=== PATIENT | female | born 1970 | race American Indian/Alaskan Native ===

== ENCOUNTER 2016-07-15 19:58 | Emergency (ER) | payer OTHER ==
[2016-07-15 20:08] VITALS: BP 151/100; PULSE 100; TEMP 98; BMI 30.7
--- NOTE | 2016-07-15 21:03 | PDOC ---
[id number] 46 year old female with a PMHx of diabetes who presents to the ED with chest pressure and left arm pain today. Patient reports associated SOB and orthopnea. She denies current chest pain, but reports slight left arm pain still. She denies chest pain on exertion, swelling, nausea, vomiting, diarrhea. Stress test and angiogram were recently done and normal. <Clarke Cheemaobhan Quita - Last Filed: 07/16/16 00:51> <CatherineSharonda - Last Filed: 07/18/16 15:59> - General Chief Complaint: Chest Pain Stated Complaint: CHEST PAIN Time Seen by Provider: 07/15/16 20:31 Past History <Clarke Cheemaobally Devlin - Last Filed: 07/16/16 00:51> - Past Medical History Asthma: Yes Diabetes: Yes - Surgical History Abdominal Surgery: Yes - Immunization History Immunization Up to Date: Yes - Psycho/Social/Smoking Cessation Hx Anxiety: No Suicidal Ideation: No Smoking History: Never smoked Have you smoked in the past 12 months: No Number of Cigarettes Smoked Daily: 0 Information on smoking cessation initiated: No Hx Alcohol Use: No Drug/Substance Use Hx: No <Sharonda Catherine - Last Filed: 07/18/16 15:59> - Past Medical History Allergies/Adverse Reactions: Allergies Allergy/AdvReac Type Severity Reaction Status Date / Time No Known Allergies Allergy Verified 07/15/16 20:05 Home Medications: Ambulatory Orders Metformin HCl 500 mg PO DAILY 03/16/16 Review of Systems - Review of Systems Comments:: 07/15/16 22:04 GENERAL/CONSTITUTIONAL: No fever or chills. No weakness. HEAD, EYES, EARS, NOSE AND THROAT: No change in vision. No ear pain or discharge. No sore throat. CARDIOVASCULAR: + chest pain, SOB, orthopnea. RESPIRATORY: No cough, wheezing, or hemoptysis. GASTROINTESTINAL: No nausea, vomiting, diarrhea or constipation. GENITOURINARY: No dysuria, frequency, or change in urination. MUSCULOSKELETAL: + left arm pain. No joint or muscle swelling or pain. No neck or back pain. SKIN: No rash NEUROLOGIC: No headache, vertigo, loss of consciousness, or change in strength/ sensation. ENDOCRINE: No increased thirst. No abnormal weight change. HEMATOLOGIC/LYMPHATIC: No anemia, easy bleeding, or history of blood clots. ALLERGIC/IMMUNOLOGIC: No hives or skin allergy. <Clarke Cheemaobally Devlin - Last Filed: 07/16/16 00:51> *Physical Exam - Vital Signs Last Vital Signs Temp Pulse Resp BP Pulse Ox 98.0 F 100 H 14 151/100 98 07/15/16 20:06 07/15/16 20:06 07/15/16 20:06 07/15/16 20:06 07/15/16 20:06 - Physical Exam Comments: 07/15/16 22:05 GENERAL: Awake, alert, and fully oriented, in no acute distress HEAD: No signs of trauma EYES: PERRLA, EOMI, sclera anicteric, conjunctiva clear ENT: Auricles normal inspection, hearing grossly normal, nares patent, oropharynx clear without exudates. Moist mucosa NECK: Normal ROM, supple, no lymphadenopathy, JVD, or masses LUNGS: Breath sounds equal, clear to auscultation bilaterally. No wheezes, and no crackles HEART: Regular rate and rhythm, normal S1 and S2, no murmurs, rubs or gallops ABDOMEN: Soft, nontender, normoactive bowel sounds. No guarding, no rebound. No masses EXTREMITIES: Normal range of motion, no edema. No clubbing or cyanosis. No cords, erythema, or tenderness NEUROLOGICAL: Cranial nerves II through XII grossly intact. Normal speech, normal gait SKIN: Warm, Dry, normal turgor, no rashes or lesions noted. <Clarke Cheemaobally Devlin - Last Filed: 07/16/16 00:51> - Vital Signs Last Vital Signs Temp Pulse Resp BP Pulse Ox 98.0 F 100 H 14 151/100 98 07/15/16 20:06 07/15/16 20:06 07/15/16 20:06 07/15/16 20:06 07/15/16 20:06 <Sharonda Catherine - Last Filed: 07/18/16 15:59> ED Treatment Course - LABORATORY CBC & Chemistry Diagram: 07/15/16 21:00 07/15/16 21:00 - ADDITIONAL ORDERS Additional order review: Laboratory Results 07/15/16 07/15/16 07/15/16 21:00 21:00 21:00 D-Dimer < 200 Sodium 139 Potassium 4.3 Chloride 104 Carbon Dioxide 26 Anion Gap 9 BUN 13 Creatinine 0.8 Creat Clearance w eGFR > 60 Random Glucose 210 H D Calcium 10.0 Total Bilirubin 0.2 D AST 21 ALT 29 Alkaline Phosphatase 145 H D Creatine Kinase 77 Troponin I < 0.02 Total Protein 8.2 Albumin 3.5 Urine HCG, Qual Negative 07/15/16 21:00 RBC 5.18 MCV 75.2 L MCHC 32.5 RDW 15.3 D MPV 8.1 Neutrophils % 67.4 Lymphocytes % 25.2 Monocytes % 5.2 Eosinophils % 1.5 Basophils % 0.7 - RADIOLOGY Radiograph Interpretation: 07/16/16 00:51 Abdominal US Reported by Dr. Leonard Evans Impression: Mildly fatty liver. No evidence of acute pathology. <Cyn Cheema - Last Filed: 07/16/16 00:51> - LABORATORY CBC & Chemistry Diagram: 07/15/16 21:00 07/15/16 21:00 <Sharonda Catherine - Last Filed: 07/18/16 15:59> Medical Decision Making - Medical Decision Making 07/15/16 23:55 Patient Name: Quynh Conner THIS IS A PRELIMINARYREPORT FROM IMAGING NURSE COORDINATOR EXAM: Ultrasound abdomen limited, right upper quadrant and limited abdominal duplex IMAGES: 45 INDICATION: Rule out cholelithiasis/cholecystitis DATE OF SERVICE: 2016-07-15 22:57:22.0 COMPARISON: none FINDINGS: Right upper quadrant ultrasound: The liver is mildly fatty and measures 17.1 cm in length, without mass or biliary duct dilation. The gallbladder is normal. The CBD is not dilated and measures3 millimeters in diameter. Right kidney measures 11.8centimeters in length and is unremarkable. The visualized aorta and IVC are normal. Pancreas is partially obscured, but appears normal. Abdominal duplex: Main portal vein demonstrates normal hepatopedal flow IMPRESSION: Mildly fatty liver. No evidence of acute pathology. Pt is refusing second cardiac enzyme. SHe states that the pain began after eating a deep fried samosa and likely is gastritis. Pt states that her pain was fleeting and now gone. She wants to follow outpatient with her PMD. She will be discharged; however, she understands that the single cardiac enzyme is nor enough to clear her chest pain as not being cardiac. <Sharonda Catherine - Last Filed: 07/18/16 15:59> *DC/Admit/Observation/Transfer - Attestations Scribe Attestion: 07/15/16 22:05 Documentation prepared by Cyn Cheema, acting as medical scientist for Sharonda Catherine MD. <Cyn Cheema - Last Filed: 07/16/16 00:51> <Sharonda Catherine - Last Filed: 07/18/16 15:59> Diagnosis at time of Disposition: Atypical chest pain, Fatty liver - Discharge Dispostion Disposition: HOME - Referrals Referrals: Lg Mahmood MD [Primary Care Provider] - - Patient Instructions Printed Discharge Instructions: DI for Atypical Chest Pain, Nonalcoholic Fatty Liver Disease
[2016-07-15 21:12] LABS: BASOPHIL 0.7 % (0-2.0); EOSINOPHIL 1.5 % (0-4.5); MCH 24.4 pg (25.7-33.7); MCHC 32.5 g/dl (32.0-36.0); MEAN CELL VOLUME 75.2 fl (80-96); MEAN PLT VOLUME 8.1 fl (7.5-11.1); NEUTROPHILS 67.4 % (42.8-82.8); PLATELET COUNT 316 K/MM3 (134-434); RDW 15.3 % (11.6-15.6); WHITE BLOOD COUNT 13.2 K/mm3 (4.0-10.0)
[2016-07-15 21:50] LABS: ALBUMIN 3.5 g/dl (3.4-5.0); ANION GAP 9 (8-16); CO2 26 mmol/L (21-32); GLUCOSE,RANDOM 210 mg/dL (74-106); SGOT/AST 21 U/L (15-37); SGPT/ALT 29 U/L (12-78)
[2016-07-15 21:55] LABS: ALK PHOS 145 U/L (45-117); BILIRUBIN,TOTAL 0.2 mg/dL (0.2-1.0); CREATININE 0.8 mg/dL (0.55-1.02); TOT PROT 8.2 g/dl (6.4-8.2); TROPONIN I < 0.02 ng/ml (0.00-0.05)
--- NOTE | 2016-07-17 16:14 | EKG ---
Test Reason : Blood Pressure : / mmHG Vent. Rate : 095 BPM Atrial Rate : 095 BPM P-R Int : 148 ms QRS Dur : 078 ms QT Int : 358 ms P-R-T Axes : 039 -12 022 degrees QTc Int : 449 ms NORMAL SINUS RHYTHM POSSIBLE LEFT ATRIAL ENLARGEMENT BORDERLINE ECG NO PREVIOUS ECGS AVAILABLE Confirmed by STEPHANIE ALLISON, MIKHAIL ([id number]) on 07/17/2016 4:14:13 PM Referred By: Confirmed By:MIKHAIL BROWN MD
== END 2016-07-16 01:33 | disposition home or self-care (01) ==
LOC: JER 19:58
DX: R07.89 Other chest pain (principal); E11.9 Type 2 diabetes mellitus without complications; Z79.84 Long term (current) use of oral hypoglycemic drugs; K76.0 Fatty (change of) liver, not elsewhere classified; J45.909 Unspecified asthma, uncomplicated
CPT/HCPCS: 36415; 71020-TC; 76705-TC; 80053; 82550; 84484; 84703; 85025; 85379; 87804; 93005; 93010; 99283-25

== ENCOUNTER 2016-09-02 07:28 | Emergency (ER) | payer OTHER ==
[2016-09-02 07:40] VITALS: BP 139/85; PULSE 88; TEMP 98.5; BMI 30.6
--- NOTE | 2016-09-02 08:09 | PDOC ---
History of Present Illness - General History Source: Patient, Old Records Exam Limitations: No Limitations - History of Present Illness Initial Comments: 09/02/16 08:17 The patient is a 46 year old female presenting with her , with a significant past medical history of diabetes and asthma, who presents to the emergency department with sore throat, body aches and fever since yesterday. She reports that her sore throat is severe, making it hard for her to swallow. She notes that she took Ibuprofen called pain aid around 3am this morning with minimal relief of her symptoms. She states that he fever is subjective. She reports that she has young children at home but has not had any sick contacts. The patient denies chest pain, shortness of breath, headache and dizziness. Denies chills, nausea, vomit, diarrhea and constipation. Denies dysuria, frequency, urgency and hematuria. Allergies: None Past surgical history: Abdominal surgery Social history: No alcohol, tobacco or drug use reported <Donte Haas - Last Filed: 09/02/16 08:17> <Cameron Antoine - Last Filed: 09/02/16 09:40> - General Chief Complaint: Sore Throat Stated Complaint: SORE THROAT Time Seen by Provider: 09/02/16 07:42 Past History <Donte Haas - Last Filed: 09/02/16 08:17> - Past Medical History Asthma: Yes Diabetes: Yes - Surgical History Abdominal Surgery: Yes - Immunization History Immunization Up to Date: Yes - Psycho/Social/Smoking Cessation Hx Anxiety: No Suicidal Ideation: No Smoking History: Never smoked Have you smoked in the past 12 months: No Number of Cigarettes Smoked Daily: 0 Information on smoking cessation initiated: No Hx Alcohol Use: No Drug/Substance Use Hx: No Substance Use Type: None <Cameron Antoine - Last Filed: 09/02/16 09:40> - Past Medical History Allergies/Adverse Reactions: Allergies Allergy/AdvReac Type Severity Reaction Status Date / Time No Known Allergies Allergy Verified 09/02/16 07:34 Home Medications: Ambulatory Orders Metformin HCl 500 mg PO DAILY 03/16/16 Amoxicillin - [Amoxicillin 500mg Capsule -] 500 mg PO BID #20 capsule 09/02/16 Review of Systems - Review of Systems Able to Perform ROS?: Yes Comments:: 09/02/16 08:20 CONSTITUTIONAL: +Fever and bodyaches. No chills, no fatigue EYES: No visual changes ENT: +Sore throat. No ear pain CARDIOVASCULAR: No chest pain, no palpitations RESPIRATORY: No cough, no SOB GI: No abdominal pain, no nausea, no vomiting, no constipation, no diarrhea GENITOURINARY: No dysuria, no frequency, no hematuria MUSKULOSKELETAL: No backpain, no joint pain, no myalgias SKIN: No rash NEURO: No headache <Donte Haas - Last Filed: 09/02/16 08:17> *Physical Exam - Vital Signs Last Vital Signs Temp Pulse Resp BP Pulse Ox 98.5 F 88 18 139/85 100 09/02/16 07:34 09/02/16 07:34 09/02/16 07:34 09/02/16 07:34 09/02/16 07:34 - Physical Exam Comments: 09/02/16 08:20 CONSTITUTIONAL: Well-appearing; well-nourished; in no apparent distress HEAD: Normocephalic; atraumatic EYES: PERRL; EOM intact ENMT: External appears normal; significant erythema of the posterior oropharynx with enlarged tonsils and large amount of exudates, uvula is midline and is nonedematous. NECK: Supple; Bilateral anterior cervical lymphadenopathy which is mildly tender CARD: Normal S1, S2; no murmurs, rubs, or gallops RESP: Normal chest excursion with respiration; breath sounds clear and equal bilaterally; no wheezes, rhonchi, or rales ABD: Soft, non-distended; non-tender; no palpable organomegaly, no palpable hernias EXT: Normal ROM in all four extremities; non-tender to palpation; distal pulses intact SKIN: Warm, dry, no rash NEURO: No focal neurological deficiencies. <Donte Haas - Last Filed: 09/02/16 08:17> - Vital Signs Last Vital Signs Temp Pulse Resp BP Pulse Ox 98.5 F 88 18 139/85 100 09/02/16 07:34 09/02/16 07:34 09/02/16 07:34 09/02/16 07:34 09/02/16 07:34 <Cameron Antoine - Last Filed: 09/02/16 09:40> Medical Decision Making - Medical Decision Making 09/02/16 09:33 Patient is well-appearing 46-year-old female with history of non-insulin- dependent diabetes who presents with signs and symptoms of the acute pharyngitis. Patient's influenza negative. Patient has received Toradol with improvement in level is of her symptoms. Patient tolerates by mouth. There is no evidence of peritonsillar abscess at this time. Will discharge with amoxicillin with PMD follow-up. <Cameron Antoine - Last Filed: 09/02/16 09:40> *DC/Admit/Observation/Transfer - Attestations Scribe Attestion: 09/02/16 08:22 Documentation prepared by Donte Haas, acting as medical charge entry specialist for Cameron Antoine MD <Donte Haas - Last Filed: 09/02/16 08:17> - Attestations Physician Attestion: 09/02/16 09:32 The documentation was prepared by the scribe under my direct supervision. I have reviewed the documentation which correctly represents the findings, medical decision-making and critical action taken by me. <Cameron Antoine - Last Filed: 09/02/16 09:40> Diagnosis at time of Disposition: Acute pharyngitis Qualifiers: Pharyngitis/tonsillitis etiology: unspecified etiology Qualified Code(s): J02.9 - Acute pharyngitis, unspecified - Discharge Dispostion Disposition: HOME Condition at time of disposition: Stable - Referrals Referrals: Lg Mahmood MD [Primary Care Provider] - - Patient Instructions Printed Discharge Instructions: DI for Pharyngitis/Tonsillopharyngitis -- Adult
[2016-09-02] MEDS ORDERED: KETOROLAC TROMETHAMINE 60 MG/2 ML VIAL IM ONE (08:15)
[2016-09-02] MEDS ORDERED: KETOROLAC TROMETHAMINE 60 MG/2 ML VIAL ONE (08:20)
== END 2016-09-02 09:58 | disposition home or self-care (01) ==
LOC: JER 07:28
PROC: 3E0233Z Introduction of Anti-inflammatory into Muscle, Percutaneous Approach (ICD-10-PCS; principal; 2016-09-02)
DX: J02.9 Acute pharyngitis, unspecified (principal); E11.9 Type 2 diabetes mellitus without complications; Z79.84 Long term (current) use of oral hypoglycemic drugs; J45.909 Unspecified asthma, uncomplicated
CPT/HCPCS: 87804; 96372; 99282-25

== ENCOUNTER 2017-07-31 15:24 | Observation (INO) | payer OTHER ==
[2017-07-31 15:45] VITALS: BMI 30.9
--- NOTE | 2017-07-31 15:55 | PDOC ---
History of Present Illness - General Chief Complaint: Chest Pain Stated Complaint: CHEST PAIN Time Seen by Provider: 07/31/17 15:26 - History of Present Illness Initial Comments: 07/31/17 15:56 The patient is a 47 year old female with a history of DM who presents for evaluation of chest pain with SOB. The patient reports a 1 day history of substernal chest pressure with associated SOB prompting the patient to present to the ED for evaluation. She states that her pain radiated into her neck, but is now isolated to her chest. She notes that she had a stress test performed 1 year ago that was normal. She otherwise denies fevers, chills, cough, nausea, vomiting, abdominal pain, or changes with urination or bowel movements. Past History - Past Medical History Allergies/Adverse Reactions: Allergies Allergy/AdvReac Type Severity Reaction Status Date / Time No Known Allergies Allergy Verified 07/31/17 15:39 Home Medications: Ambulatory Orders Metformin HCl 500 mg PO DAILY 03/16/16 Asthma: Yes COPD: No Diabetes: Yes - Surgical History Abdominal Surgery: Yes - Immunization History Immunization Up to Date: Yes - Suicide/Smoking/Psychosocial Hx Smoking History: Never smoked Have you smoked in the past 12 months: No Number of Cigarettes Smoked Daily: 0 Hx Alcohol Use: No Drug/Substance Use Hx: No Substance Use Type: None Review of Systems - Review of Systems Comments:: 07/31/17 15:59 Constitutional: No fevers, chills, fatigue, malaise HEENT: No Rhinorrhea, nasal congestion, visual changes Cardiovascular: Chest pain. No syncope, palpitations, lightheadedness Respiratory: SOB No Cough, Hemoptysis, Gastrointestinal: No Abdominal pain, Nausea, Vomiting, Constipation, Diarrhea, Melena Genitourinary: No Dysuria, Frequency, Urgency, Hesitancy, Hematuria, Flank pain Musculoskeletal: No Myalgia, arthralgia Skin: No rashes, itching, bruising, pallor Neurologic: Dizziness. No Headache, Numbness, Weakness, or Tingling Psychiatric: No Hallucinations. No SI or HI *Physical Exam - Vital Signs Last Vital Signs Temp Pulse Resp BP Pulse Ox 98 F 93 H 18 136/92 99 07/31/17 15:39 07/31/17 15:39 07/31/17 15:39 07/31/17 15:39 07/31/17 15:39 - Physical Exam Comments: 07/31/17 16:01 General Appearance: Nourished. No Apparent Distress HEENT: No Pharyngeal Erythema, Tonsillar Exudate, Tonsillar Erythema Neck: No Cervical Lymphadenopathy Respiratory/Chest: Lungs Clear, Normal Breath Sounds. No Crackles, Rales, Rhonchi, Wheezing Cardiovascular: Regular Rhythm, Regular Rate. No Murmur, Gallops, Rubs Gastrointestinal/Abdominal: Normal Bowel Sounds, Soft. No Guarding, Rebound, Tenderness Musculoskeletal: No CVA Tenderness Extremity: Normal Capillary Refill Integumentary: Normal Color, Dry, Warm Neurologic: Fully Oriented, Alert, Normal Mood/Affect, Normal Response, Heart Score/ECG Review - History History: Moderately suspicious - Electrocardiogram EKG: Normal - Age Age: 45-65 - Risk Factors Risk Factors Heart Score: Yes Hx Hypertension, Yes Hx Diabetes, Yes Positive family hx of cardiac disease Based on the list above the patient has:: >/=3 risk factors or Hx atherosclerotic disease - Troponin Troponin: </= normal limit - Score Heart Score - Total: 4 #1 ECG reviewed & interpreted by me at: 16:02 General ECG Interpretation: Sinus Rhythm, Normal Rate, Normal Intervals, No acute ischemic changes ED Treatment Course - LABORATORY CBC & Chemistry Diagram: 07/31/17 16:00 07/31/17 16:00 - RADIOLOGY Radiology Studies Ordered: Category Date Time Status CHEST X-RAY PORTABLE* [RAD] Stat Radiology 07/31/17 15:51 Ordered Medical Decision Making - Medical Decision Making 07/31/17 16:02 The patient is a 47 year old female with a history of DM who presents for evaluation of chest pain with SOB. Differential includes but is not limited to : ACS, Gastritis, Musculoskeletal, infectious, metabolic derangement. Given the patient's history, we will obtain a cbc, cmp, troponin, ekg, and chest plain film to evaluate for possible etiologies especially ACS. We will continue to monitor and reassess. 07/31/17 17:53 CBC, cmp, troponin, EKG are unremarkable. However, given her co-morbidities and history, we believe she requires observation admission for further monitoring and cardiology eval. We discussed the case with Dr. Barnett's team who accepted the patient for admission. We discussed the results and the plan with the patient who voiced understanding and is agreeable with the plan. *DC/Admit/Observation/Transfer Diagnosis at time of Disposition: Chest pain Qualifiers: Chest pain type: unspecified Qualified Code(s): R07.9 - Chest pain, unspecified - Discharge Dispostion Condition at time of disposition: Stable Admit: Yes - Referrals - Patient Instructions - Post Discharge Activity
[2017-07-31] MEDS ORDERED: SODIUM CHLORIDE 1,000 ML IV STA (16:10)
[2017-07-31] MEDS ORDERED: MAG HYDROX/AL HYDROX/SIMETH 30 ML UNIT-DOSE CUP PO ONE (16:11)
[2017-07-31 16:14] LABS: BASO % 0.5 % (0-2.0); EOS % 0.5 % (0-4.5); HEMATOCRIT 36.5 % (32.4-45.2); HEMOGLOBIN 11.6 GM/dL (10.7-15.3); MCHC 31.8 g/dl (32.0-36.0); MEAN CELL VOLUME 75.5 fl (80-96); MONO % 5.7 % (3.8-10.2); NEUT % 72.3 % (42.8-82.8); PLATELET COUNT 282 K/MM3 (134-434); RBC 4.84 M/mm3 (3.60-5.2); RDW 15.8 % (11.6-15.6); WHITE BLOOD COUNT 11.2 K/mm3 (4.0-10.0)
[2017-07-31] MEDS ORDERED: FAMOTIDINE 20 MG/50 ML IVPB 20 MG/50 ML MG IVPB ONE ×2 (16:15→16:43)
[2017-07-31] MEDS ORDERED: MAG HYDROX/AL HYDROX/SIMETH 30 ML UNIT-DOSE CUP ONE (16:43)
[2017-07-31 16:59] LABS: ALBUMIN 3.1 g/dl (3.4-5.0); ANION GAP 9 (8-16); BLOOD UREA NITROGEN 12 mg/dL (7-18); CALCIUM 8.6 mg/dL (8.5-10.1); CHLORIDE 107 mmol/L (98-107); CO2 21 mmol/L (21-32); GLUCOSE,RANDOM 120 mg/dL (74-106); SGPT/ALT 29 U/L (12-78); SODIUM 137 mmol/L (136-145)
[2017-07-31 17:04] LABS: ALK PHOS 115 U/L (45-117); BILIRUBIN,TOTAL 0.3 mg/dL (0.2-1.0); CREATININE 0.6 mg/dL (0.55-1.02); TOT PROT 7.1 g/dl (6.4-8.2)
[2017-07-31 17:05] LABS: POTASSIUM 4.5 mmol/L (3.5-5.1); SGOT/AST 34 U/L (15-37)
--- NOTE | 2017-07-31 18:06 | PDOC ---
Attending Attestation - Resident Resident Name: Jeff La - ED Attending Attestation I have performed the following: I have examined & evaluated the patient, The case was reviewed & discussed with the resident, I agree w/resident's findings & plan, Exceptions are as noted - HPI HPI: 07/31/17 18:06 47 yo female p/w chest pain that radiates to her neck - Physicial Exam PE: 07/31/17 18:16 wnwd 47 yo female in no acute disctress but states she had chest pain today head ncat eyes calvin neck jvd,no bruits lungs cta b/l cvs [id number] abdominal exam nontender extremities no pitting edema neuro axox3,ambulatory skin warm and dry psych appropriate - Medical Decision Making 07/31/17 18:18 pt has NIDDM and family history of heart disease and concerning symptoms of angina-will admit to telemetry OBS IMP angina/diabetes
--- NOTE | 2017-08-01 10:33 | EKG ---
Test Reason : Blood Pressure : / mmHG Vent. Rate : 092 BPM Atrial Rate : 092 BPM P-R Int : 160 ms QRS Dur : 086 ms QT Int : 372 ms P-R-T Axes : 024 -11 010 degrees QTc Int : 460 ms NORMAL SINUS RHYTHM NORMAL ECG WHEN COMPARED WITH ECG OF 15-JUL-2016 21:09, NO SIGNIFICANT CHANGE WAS FOUND Confirmed by OMI BLEDSOE MD ([id number]) on 08/01/2017 10:33:33 AM Referred By: Confirmed By:OMI BLEDSOE MD
[2017-08-01] MEDS: INSULIN SLIDING SCALE (NOVOLOG) 1 VIAL SQ SCH ×3 (11:10→21:17)
--- NOTE | 2017-08-01 11:29 | CON.CARD ---
Cardiology Consult (text) - Consultation Consultation Note: cc: cp hpi: 47 f hx dm here with cp. Last night pt at rest and noticed sharp left sided cp for a second, resolved on own. No associated sxs. No sob, palps, dizzy, loc, pnd, orthopnea, le edema. No further or prior cp. Walks up 5 flights stairs at her apt regularly w/o anginal sxs. Feeling well now. No hx hrt dz. pmh: per hpi psh: nc social: no tob fam: no premature cad, scd ros: per hpi; no nvd, fever, cough, nasal congestion, gib, hematuria, dysuria, momin, vision changes meds: Home Medications Medication Instructions Recorded Metformin HCl 500 mg PO DAILY 03/16/16 pe: Vital Signs Period Temp Pulse Resp BP Sys/[place] Pulse Ox Last 24 Hr 97.6 F-98.6 F 77-93 18-18 112-140/75-92 99-100 nad no jvd rrr s1s2 no mrg cta bl nl eff no le e/c/c abd nt nd pos bs no jaundice diaphoresis pos dp pt no carotid bruits aaox3 Laboratory Last Values WBC 11.2 K/mm3 (4.0-10.0) H 07/31/17 16:00 RBC 4.84 M/mm3 (3.60-5.2) 07/31/17 16:00 Hgb 11.6 GM/dL (10.7-15.3) 07/31/17 16:00 Hct 36.5 % (32.4-45.2) 07/31/17 16:00 MCV 75.5 fl (80-96) L 07/31/17 16:00 MCH 24.0 pg (25.7-33.7) L 07/31/17 16:00 MCHC 31.8 g/dl (32.0-36.0) L 07/31/17 16:00 RDW 15.8 % (11.6-15.6) H 07/31/17 16:00 Plt Count 282 K/MM3 (134-434) 07/31/17 16:00 MPV 8.0 fl (7.5-11.1) 07/31/17 16:00 Neutrophils % 72.3 % (42.8-82.8) 07/31/17 16:00 Lymphocytes % 21.0 % (8-40) 07/31/17 16:00 Monocytes % 5.7 % (3.8-10.2) 07/31/17 16:00 Eosinophils % 0.5 % (0-4.5) 07/31/17 16:00 Basophils % 0.5 % (0-2.0) 07/31/17 16:00 Sodium 137 mmol/L (136-145) 07/31/17 16:00 Potassium 4.5 mmol/L (3.5-5.1) 07/31/17 16:00 Chloride 107 mmol/L (98-107) 07/31/17 16:00 Carbon Dioxide 21 mmol/L (21-32) 07/31/17 16:00 Anion Gap 9 (8-16) 07/31/17 16:00 BUN 12 mg/dL (7-18) 07/31/17 16:00 Creatinine 0.6 mg/dL (0.55-1.02) 07/31/17 16:00 Creat Clearance w eGFR > 60 (>60) 07/31/17 16:00 Random Glucose 120 mg/dL (74-106) H 07/31/17 16:00 Calcium 8.6 mg/dL (8.5-10.1) 07/31/17 16:00 Total Bilirubin 0.3 mg/dL (0.2-1.0) D 07/31/17 16:00 AST 34 U/L (15-37) 07/31/17 16:00 ALT 29 U/L (12-78) 07/31/17 16:00 Alkaline Phosphatase 115 U/L (45-117) 07/31/17 16:00 Creatine Kinase 49 IU/L (26-192) 08/01/17 10:05 Troponin I < 0.02 ng/ml (0.00-0.05) 08/01/17 10:05 Total Protein 7.1 g/dl (6.4-8.2) 07/31/17 16:00 Albumin 3.1 g/dl (3.4-5.0) L 07/31/17 16:00 Serum , Qual Negative 07/31/17 15:51 ecg: sr, nl intervals, no ischemic changes cxr: clear lungs a/p: 47 f hx dm here with cp. cp: -atypical, resolved -ce's neg, ecg unremarkable -no signs acs -given hx dm will eval further with echo and ett, if both benign then ok for dc from cardiac pov
--- NOTE | 2017-08-01 14:23 | TRE ---
Protocol Name : JASE Max Work Load (METS*10) : 85 Time In Exercise Phase : 00:06:59 Max. Systolic BP : 152 mmHg Max Diastolic BP : 78 mmHg Max Heart Rate : 148 BPM Max Predicted Heart Rate : 174 BPM Attending Physician : DR. BLEDSOE Reason For Termination : Target Heart Rate Achieved Reason for Test : CP Stress Protocol : JASE Rest HR : 97 BPM PeakEx METs : 8.5 METS Recovery ECG Response (OLD) : Diagnosis : baseline ekg nsr WNL at peak stress [address] depressions V4-V6 c/w ischemia Abnormal treadmill stress test Confirmed by RAKAN ALLISON, OMI ([id number]) on 08/01/2017 2:22:43 PM
[2017-08-01] MEDS ORDERED: INSULIN (NOVOLOG) ASPART 100 UNITS/ML 10ML VIAL ONE ×2 (17:18→17:26)
--- NOTE | 2017-08-01 18:48 | HP ---
Admitting History and Physical - Admission Chief Complaint: chest pain History of Present Illness: The patient is a 47 year old female with a history of DM who presents for evaluation of chest pain with SOB. The patient reports a 1 day history of substernal chest pressure with associated SOB prompting the patient to present to the ED for evaluation. She states that her pain radiated into her neck, but is now isolated to her chest. She notes that she had a stress test performed 1 year ago that was normal. She otherwise denies fevers, chills, cough, nausea, vomiting, abdominal pain, or changes with urination or bowel movements. History Source: Patient Limitations to Obtaining History: No Limitations - Smoking History Smoking history: Never smoked Have you smoked in the past 12 months: No Aproximately how many cigarettes per day: 0 - Alcohol/Substance Use Hx Alcohol Use: No - Social History Usual Living Arrangement: Yes: With Spouse ADL: Independent History of Recent Travel: No Home Medications - Allergies Allergies/Adverse Reactions: Allergies Allergy/AdvReac Type Severity Reaction Status Date / Time No Known Allergies Allergy Verified 07/31/17 15:39 - Home Medications Home Medications: Ambulatory Orders Metformin HCl 500 mg PO DAILY 03/16/16 Review of Systems - Review of Systems Constitutional: reports: No Symptoms Eyes: reports: No Symptoms HENT: reports: No Symptoms Neck: reports: No Symptoms Cardiovascular: reports: Chest Pain, Palpitations. denies: Edema, Shortness of Breath Respiratory: reports: SOB. denies: SOB on Exertion, Wheezing Gastrointestinal: reports: No Symptoms Genitourinary: reports: No Symptoms Breasts: reports: No Symptoms Reported Musculoskeletal: reports: No Symptoms Integumentary: reports: No Symptoms Neurological: reports: No Symptoms Endocrine: reports: No Symptoms Hematology/Lymphatic: reports: No Symptoms Psychiatric: reports: No Symptoms Physical Examination Vital Signs: Vital Signs Temperature 98.4 F 08/01/17 15:58 Pulse Rate 84 08/01/17 15:58 Respiratory Rate 18 08/01/17 15:58 Blood Pressure 139/76 08/01/17 15:58 O2 Sat by Pulse Oximetry (%) 98 08/01/17 15:58 Constitutional: Yes: Well Nourished, No Distress Eyes: Yes: Conjunctiva Clear, EOM Intact HENT: Yes: Atraumatic, Normocephalic Neck: Yes: Supple, Trachea Midline Cardiovascular: Yes: Regular Rate and Rhythm Respiratory: Yes: CTA Bilaterally Gastrointestinal: Yes: Normal Bowel Sounds, Soft Renal/: Yes: WNL Breast(s): Yes: WNL Musculoskeletal: Yes: WNL Extremities: Yes: WNL Edema: No Peripheral Pulses WNL: Yes Integumentary: Yes: WNL Wound/Incision: Yes: Clean/Dry, Well Approximated Neurological: Yes: WNL, Alert, Oriented ...Motor Strength: WNL Psychiatric: Yes: Alert, Oriented Labs: CBC, BMP 07/31/17 16:00 07/31/17 16:00 Problem List - Problems (1) Chest pain Assessment/Plan: ekg / TNI cardiology consult Dr Jacinto stress test per Cardiology Code(s): R07.9 - CHEST PAIN, UNSPECIFIED Qualifiers: Chest pain type: unspecified Qualified Code(s): R07.9 - Chest pain, unspecified (2) Diabetes mellitus Assessment/Plan: diabetic diet sliding scale diabetic education Code(s): E11.9 - TYPE 2 DIABETES MELLITUS WITHOUT COMPLICATIONS
[2017-08-02] MEDS: INSULIN SLIDING SCALE (NOVOLOG) 1 VIAL SQ SCH ×2 (06:44→12:18)
[2017-08-02 07:11] LABS: BASO % 0.4 % (0-2.0); EOS % 1.3 % (0-4.5); HEMATOCRIT 37.1 % (32.4-45.2); HEMOGLOBIN 12.1 GM/dL (10.7-15.3); LYMPH % 37.4 % (8-40); MCH 24.6 pg (25.7-33.7); MCHC 32.5 g/dl (32.0-36.0); MEAN CELL VOLUME 75.8 fl (80-96); NEUT % 54.9 % (42.8-82.8); PLATELET COUNT 287 K/MM3 (134-434); RDW 15.8 % (11.6-15.6); WHITE BLOOD COUNT 10.9 K/mm3 (4.0-10.0)
[2017-08-02 07:41] LABS: ANION GAP 8 (8-16); BLOOD UREA NITROGEN 13 mg/dL (7-18); CALCIUM 8.8 mg/dL (8.5-10.1); CHLORIDE 104 mmol/L (98-107); CHOLESTEROL 160 mg/dL (50-200); CO2 25 mmol/L (21-32); CREATININE 0.6 mg/dL (0.55-1.02); GLUCOSE,RANDOM 119 mg/dL (74-106); HDL CHOLESTEROL 35 mg/dL (40-60); LDL CHOLESTEROL (ONLY SJRH) 108 mg/dL (5-100); POTASSIUM 4.3 mmol/L (3.5-5.1); SODIUM 137 mmol/L (136-145); TRIGLYCERIDES 139 mg/dL (35-160)
[2017-08-02] MEDS ORDERED: PANTOPRAZOLE 40 MG TABLET (FP) PO SCH (10:00)
--- NOTE | 2017-08-02 10:40 | PN ---
Progress Note (short form) - Note Progress Note: s: no cp sob palps dizzy o: Vital Signs Period Temp Pulse Resp BP Sys/[place] Pulse Ox Last 24 Hr 97.6 F-98.7 F 76-87 18-20 118-139/66-87 96-98 nad no jvd rrr s1s2 no mrg cta bl nl eff no le e/c/c abd nt nd pos bs no jaundice diaphoresis aaox3 Current Medications Generic Name Dose Route Start Last Admin Trade Name Kendrick PRN Reason Stop Dose Admin Insulin Aspart 1 vial 08/01/17 11:00 08/02/17 06:44 Novolog Vial Sliding Scale - SQ Not Given ACHS EMERITA Protocol Pantoprazole Sodium 40 mg 08/02/17 10:00 08/02/17 10:01 Protonix - PO 40 mg DAILY EMERITA Administration CBC, BMP 08/02/17 05:35 08/02/17 05:35 ecg: sr, nl intervals, no ischemic changes cxr: clear lungs tele: sr echo 07/2017: nl lv, rv tds, mild mr ett 07/2017: +st depressions mibi 07/2017: mod size, mild intensity inf ischemia, lvef 87%-->i reviewed this study and it was normal, no evidence of ischemia, normal myocardial perfusion a/p: 47 f hx dm here with cp. cp: -atypical, resolved -ce's neg, ecg unremarkable -echo benign -ett was abnl so sent for nuclear stress test. Nuclear stress test was reported as abnl with mild inf ischemia. I reviewed the study myself and it is normal, there is no ischemia/scar and there is normal myocardial perfusion. pt ok for dc from cardiac pov
--- NOTE | 2017-08-02 11:23 | PN ---
Progress Note (short form) - Note Progress Note: Pt found alert and oriented x 3, sitting in bed. Spouse present. No c/o sob, chest pain or palpitations. Pt cleared by Cardiology. Vital Signs Period Temp Pulse Resp BP Sys/C[place]ona Pulse Ox Last 24 Hr 97.6 F-98.7 F 76-87 18-20 118-139/66-87 96-98 NAD HEENT- Normocephalic Neck- supple Lungs- CTAB Heart- s1/s2 Abd- Soft, NT, Pos BS x 4 Ext- Neg LE edema CBC, BMP 08/02/17 05:35 08/02/17 05:35 Active Medications Insulin Aspart (Novolog Vial Sliding Scale -) 1 vial SQ ACHS EMERITA PRN Reason: Protocol Last Admin: 08/02/17 06:44 Dose: Not Given Pantoprazole Sodium (Protonix -) 40 mg PO DAILY EMERITA Last Admin: 08/02/17 10:01 Dose: 40 mg Problem List - Problems (1) Chest pain Assessment/Plan: ekg / TNI NEG cardiology consult appreciated Cleared by Cardiology Code(s): R07.9 - CHEST PAIN, UNSPECIFIED Qualifiers: Chest pain type: unspecified Qualified Code(s): R07.9 - Chest pain, unspecified (2) Diabetes mellitus Assessment/Plan: diabetic diet sliding scale diabetic education Code(s): E11.9 - TYPE 2 DIABETES MELLITUS WITHOUT COMPLICATIONS Plan: [place] home today.
--- NOTE | 2017-08-02 11:34 | EKG ---
Test Reason : Blood Pressure : / mmHG Vent. Rate : 079 BPM Atrial Rate : 079 BPM P-R Int : 156 ms QRS Dur : 082 ms QT Int : 392 ms P-R-T Axes : 006 -05 001 degrees QTc Int : 449 ms NORMAL SINUS RHYTHM NORMAL ECG WHEN COMPARED WITH ECG OF 31-JUL-2017 15:44, NO SIGNIFICANT CHANGE WAS FOUND Confirmed by MICHELE HALE MD ([id number]) on 08/02/2017 11:33:47 AM Referred By: Confirmed By:MICHELE HALE MD
--- NOTE | 2017-08-02 11:49 | DS ---
Physical Examination Vital Signs: Vital Signs Temperature 98.5 F 08/02/17 10:00 Pulse Rate 80 08/02/17 10:00 Respiratory Rate 20 08/02/17 10:00 Blood Pressure 123/67 08/02/17 10:00 O2 Sat by Pulse Oximetry (%) 98 08/02/17 10:00 Labs: CBC, BMP 08/02/17 05:35 08/02/17 05:35 Discharge Summary Reason For Visit: CHEST PAIN Current Active Problems Chest pain (Acute) Diabetes mellitus (Acute) Condition: Stable - Instructions Referrals: Rneny Perez MD [Staff Physician] - Lg Mahmood MD [Primary Care Provider] - Disposition: HOME - Home Medications Comprehensive Discharge Medication List: Ambulatory Orders Metformin HCl 500 mg PO DAILY 03/16/16
[2017-08-02 13:53] VITALS: BP 122/83; PULSE 87; TEMP 99.7
== END 2017-08-02 13:54 | disposition home or self-care (01) ==
LOC: JER 15:24 → JERBED 17:53 → J4S 08-01 15:15
PROVIDERS: ADMIT Family Medicine; ATTEND Family Medicine
PROC: 3E033GC Introduction of Other Therapeutic Substance into Peripheral Vein, Percutaneous Approach (ICD-10-PCS; principal; 2017-07-31)
PROC: 3E0337Z Introduction of Electrolytic and Water Balance Substance into Peripheral Vein, Percutaneous Approach (ICD-10-PCS; 2017-07-31)
DX: R07.89 Other chest pain (principal); E11.9 Type 2 diabetes mellitus without complications; J45.909 Unspecified asthma, uncomplicated; Z79.84 Long term (current) use of oral hypoglycemic drugs
CPT/HCPCS: 36415; 71045-TC-FY; 78452-TC; 80048; 80053; 80061; 82550; 82962; 83721; 84439; 84484; 84703; 85025; 93005; 93010; 93017; 93018; 93306-TC; 96361; 96365; 99285-25; A9502; C1887; G0378

== ENCOUNTER 2017-10-22 10:46 | Emergency (ER) | payer OTHER ==
[2017-10-22 11:06] VITALS: BP 149/79; PULSE 96; TEMP 98.9; BMI 29.9
--- NOTE | 2017-10-22 11:57 | PDOC ---
History of Present Illness - General Chief Complaint: Pain Stated Complaint: TOE PAIN History Source: Patient Exam Limitations: No Limitations - History of Present Illness Initial Comments: 10/22/17 11:58 Best Contact: PCP: Leonardo Pmhx:DM 2 Pshx: Total vaginal hysterectomy Allergies: NKDA 47-year-old female presents to the ER complaining of pain to the left fourth toe. Patient states she jammed her finger onto her toe accidentally last evening. Patient denies extremity numbness or tingling but states the pain is described as 4/10 dull nonradiating intermittent discomfort. The pain is exacerbated on touch and alleviated minimally at rest. Patient denies any other injuries or complaints. Past History - Past Medical History Allergies/Adverse Reactions: Allergies Allergy/AdvReac Type Severity Reaction Status Date / Time No Known Allergies Allergy Verified 10/22/17 11:03 Home Medications: Ambulatory Orders Metformin HCl 500 mg PO DAILY 03/16/16 Anemia: No Asthma: Yes Cancer: No Cardiac Disorders: Yes (chest pain 1 year ago) CVA: No COPD: No CHF: No Dementia: No Diabetes: Yes GI Disorders: No Disorders: No HTN: Yes Hypercholesterolemia: No Liver Disease: No Seizures: No Thyroid Disease: No - Surgical History Abdominal Surgery: Yes Appendectomy: No Cardiac Surgery: No Cholecystectomy: No Lung Surgery: No Neurologic Surgery: No Orthopedic Surgery: No - Immunization History Immunization Up to Date: Yes - Suicide/Smoking/Psychosocial Hx Smoking History: Never smoked Have you smoked in the past 12 months: No Number of Cigarettes Smoked Daily: 0 Hx Alcohol Use: No Drug/Substance Use Hx: No Substance Use Type: None Hx Substance Use Treatment: No Review of Systems - Review of Systems Able to Perform ROS?: Yes Comments:: 10/22/17 12:02 CONSTITUTIONAL: Absent: fever, chills, diaphoresis, generalized weakness, malaise, loss of appetite HEENT: Absent: rhinorrhea, nasal congestion, throat pain, throat swelling, difficulty swallowing, mouth swelling, ear pain, eye pain, visual Changes MUSCULOSKELETAL: Absent: myalgia, arthralgia, joint swelling SKIN: Absent: rash, itching, pallor HEMATOLOGIC/IMMUNOLOGIC: Absent: easy bleeding, easy bruising, lymphadenopathy, frequent infections ENDOCRINE: Absent: unexplained weight gain, unexplained weight loss, heat intolerance, cold intolerance Left 4th toe: +pain Is the patient limited Emir[place] proficient: No *Physical Exam - Vital Signs Last Vital Signs Temp Pulse Resp BP Pulse Ox 98.9 F 96 H 16 149/79 97 10/22/17 11:04 10/22/17 11:04 10/22/17 11:04 10/22/17 11:04 10/22/17 11:04 - Physical Exam Comments: 10/22/17 12:02 GENERAL: Well developed, well nourished. Awake and alert. No acute distress. MUSCULOSKELETAL Normal range of motion at all joints. No bony deformities or tenderness. No CVA tenderness. EXTREMITIES: No cyanosis. No clubbing. No edema. No calf tenderness. SKIN: Warm and dry. Normal capillary refill. No rashes. No jaundice. Left 4th toe Cap refill <2sewc +eccyhmosis to plantar surface of 4th toe F.R>O>M. Moderate Sedation - Procedure Monitoring Vital Signs: Vital Signs Temp Pulse Resp BP Pulse Ox 98.9 F 96 H 16 149/79 97 10/22/17 11:04 10/22/17 11:04 10/22/17 11:04 10/22/17 11:04 10/22/17 11:04 ED Treatment Course - RADIOLOGY Radiology Studies Ordered: Category Date Time Status TOE(S) LEFT [RAD] Stat Radiology 10/22/17 11:20 Ordered *DC/Admit/Observation/Transfer Diagnosis at time of Disposition: Toe contusion Qualifiers: Encounter type: initial encounter Toe: lesser toe Damage to nail status: without damage Laterality: left Qualified Code(s): S90.122A - Contusion of left lesser toe(s) without damage to nail, initial encounter - Discharge Dispostion Disposition: HOME Condition at time of disposition: Stable Decision to Admit order: No - Referrals Referrals: Yola Mills MD [Staff Physician] - - Patient Instructions Printed Discharge Instructions: DI for Contusion Additional Instructions: Ice; 20 mins on alternating with 20 mins off for 48 hours while awake. Rest Elevate Follow up with your orthopedic surgeon or the one listed on the discharge form. Return to the ER for severe/persistent/worsening symptoms, extremity numbness/ tingling sensation. Please go directly to Dr. Yola Mills's office. She is a contract negotiator who is willing to see your now area her address is located at [address] [facility] [address] - Post Discharge Activity Progress Note - Progress Note Progress Note: 1158hrs: Called DPM Yola Mills located and 02/07/1969 [facility] [address]. I spoke to Charlie, command center officer who states Dr. Mills is willing to see the patient now. Patient was given should instructions to go directly to Dr. Mills's office across history.
== END 2017-10-22 12:01 | disposition home or self-care (01) ==
LOC: JERFT 10:46
DX: S90.122A Contusion of left lesser toe(s) without damage to nail, initial encounter (principal); Y33.XXXA Other specified events, undetermined intent, initial encounter; Y93.89 Activity, other specified; Y92.038 Other place in apartment as the place of occurrence of the external cause; Y99.8 Other external cause status
CPT/HCPCS: 73660-TC-FY; 99281-25

== ENCOUNTER 2017-12-21 15:31 | Emergency (ER) | payer OTHER ==
[2017-12-21 15:59] VITALS: BP 144/78; PULSE 86; TEMP 98.7; BMI 31.8
--- NOTE | 2017-12-21 16:00 | PDOC ---
Rapid Medical Evaluation Time Seen by Provider: 12/21/17 15:52 Medical Evaluation: Allergies Allergy/AdvReac Type Severity Reaction Status Date / Time No Known Allergies Allergy Verified 10/22/17 11:03 12/21/17 15:55 Pt. presents to the ED with 3-4 days of chest pain. Pt states that today the chest pain was more frequent today, so she presents to the ED. She points to her mid-chest and L chest. The pain is brief Exam: RRR, CTAB. AAOx3 Orders: Labs, urine, EKG, CXR Pt to proceed to ED for further evaluation Discharge Disposition - Diagnosis Chest pain - Referrals - Patient Instructions - Post Discharge Activity
[2017-12-21 17:15] LABS: BASO % 0.6 % (0-2.0); EOS % 1.2 % (0-4.5); HEMATOCRIT 36.8 % (32.4-45.2); HEMOGLOBIN 11.7 GM/dL (10.7-15.3); LYMPH % 27.7 % (8-40); MCH 23.6 pg (25.7-33.7); MCHC 31.9 g/dl (32.0-36.0); MEAN CELL VOLUME 74.2 fl (80-96); MEAN PLT VOLUME 8.5 fl (7.5-11.1); MONO % 4.4 % (3.8-10.2); NEUT % 66.1 % (42.8-82.8); PLATELET COUNT 290 K/MM3 (134-434); RBC 4.96 M/mm3 (3.60-5.2); RDW 16.3 % (11.6-15.6); WHITE BLOOD COUNT 12.3 K/mm3 (4.0-10.0)
[2017-12-21 17:41] LABS: INR 1.04 (0.82-1.09); PROTHROMBIN TIME (PATIENT) 11.7 SEC (9.7-13.0)
[2017-12-21 18:41] LABS: URINE APPEARANCE CLOUDY; URINE BILIRUBIN NEGATIVE (<2.0 mg/dL); URINE COLOR YELLOW; URINE GLUCOSE (UA) 3+ (NEGATIVE); URINE KETONE TRACE (NEGATIVE); URINE LEUK ESTERASE TRACE (NEGATIVE); URINE NITRITE NEGATIVE (NEGATIVE); URINE UROBILINOGEN NEGATIVE mg/dL (0.2-1.0)
[2017-12-21 18:48] LABS: URINE PROTEIN 1+ (NEGATIVE)
[2017-12-21 18:51] LABS: EPI CELLS MODERATE /HPF (FEW); URINE MUCUS RARE
--- NOTE | 2017-12-21 19:06 | PDOC ---
History of Present Illness - General Chief Complaint: Chest Pain Stated Complaint: CHEST PAIN Time Seen by Provider: 12/21/17 15:52 History Source: Patient Exam Limitations: No Limitations - History of Present Illness Initial Comments: Pt, with PMH of Type 2 DM, presents with chest pain for 3-4 days. Pt states that the discomfort is in her left upper chest, lasts for a few minutes, and radiates to her L arm. The pain is not associated with nausea/vomiting, diaphoresis, or exertion. The pt has recently increased her exercise to 3 hours of walking over the past few weeks, but denies any recent trauma or increased lifting with her arms or back. She has noticed SOB with walking, but not at rest. The pt denies any alleviating or exacerbating factors, and has not taken any OTC medication for the chest discomfort. She has noticed some increased swelling in her legs up to her ankle for the past 1-2 months. She presented with similar chest pain about 1 year ago, which occurred after eating fatty foods, and was relieved with antacids. She takes metformin for her diabetes, but her blood sugar often increases to over 200 due to increased soda intake. She denies any recent travel and smoking/ alcohol use. 12/21/17 20:18 Past History - Travel Traveled outside of the country in the last 30 days: No Close contact w/someone who was outside of country & ill: No - Past Medical History Allergies/Adverse Reactions: Allergies Allergy/AdvReac Type Severity Reaction Status Date / Time No Known Allergies Allergy Verified 12/21/17 15:56 Home Medications: Ambulatory Orders metFORMIN HCL [Metformin HCl] 500 mg PO DAILY 03/16/16 Omeprazole 20 mg PO DAILY PRN #14 tablet. 12/21/17 Anemia: No Asthma: Yes Cancer: No Cardiac Disorders: Yes (chest pain 1 year ago) CVA: No COPD: No CHF: No Dementia: No Diabetes: Yes GI Disorders: No Disorders: No HTN: Yes Hypercholesterolemia: No Liver Disease: No Seizures: No Thyroid Disease: No - Surgical History Abdominal Surgery: Yes Appendectomy: No Cardiac Surgery: No Cholecystectomy: No Lung Surgery: No Neurologic Surgery: No Orthopedic Surgery: No - Immunization History Immunization Up to Date: Yes - Suicide/Smoking/Psychosocial Hx Smoking History: Never smoked Have you smoked in the past 12 months: No Number of Cigarettes Smoked Daily: 0 Hx Alcohol Use: No Drug/Substance Use Hx: No Substance Use Type: None Hx Substance Use Treatment: No Review of Systems - Review of Systems Able to Perform ROS?: Yes Comments:: Used tracer bullet charging machine operator for final questions, pt could provide ROS. 12/22/17 00:36 Is the patient limited Latvian proficient: No Constitutional: Yes: Weight Stable. No: Chills, Diaphoresis, Fever, Loss of Appetite, Weakness HEENTM: No: Blurred Vision, Recent change in vision Respiratory: Yes: SOB with Exertion (Pt recently increased exercise. SOB with climbing stairs.). No: Cough, Orthopnea, Shortness of Breath, SOB at Rest, Productive cough Cardiac (ROS): Yes: Chest Pain (L upper chest pain, radiation to L arm. ). No: Irregular Heart Rate, Palpitations, Syncope, Chest Tightness ABD/GI: No: Abdominal Distended, Constipated, Diarrhea, Nausea, Vomiting, Indigestion (No recent heartburn.), Abdominal cramping : No: Burning, Dysuria, Frequency, Pain, Urgency Musculoskeletal: No: Back Pain, Joint Pain Integumentary: No: Bruising, Rash, Sweating Neurological: No: Headache, Seizure, Weakness Psychiatric: No: Change in Appetite Endocrine: No: Increased Urine, Change in Weight Hematologic/Lymphatic: No: Anemia, Swollen Glands All Other Systems: Reviewed and Negative *Physical Exam - Vital Signs Last Vital Signs Temp Pulse Resp BP Pulse Ox 98.7 F 86 16 144/78 99 12/21/17 15:56 12/21/17 15:56 12/21/17 15:56 12/21/17 15:56 12/21/17 15:56 - Physical Exam General Appearance: Yes: Nourished, Appropriately Dressed. No: Apparent Distress HEENT: positive: EOMI, Normal ENT Inspection, Normal Voice, Symmetrical Neck: positive: Trachea midline, Normal Thyroid, Supple. negative: Tender, Rigid Respiratory/Chest: positive: Lungs Clear, Normal Breath Sounds. negative: Chest Tender, Respiratory Distress, Accessory Muscle Use, Crackles, Wheezing Cardiovascular: positive: Regular Rhythm, Regular Rate, S1, S2. negative: Edema , JVD, Murmur Vascular Pulses: Carotid (R): 4+, Carotid (L): 4+ Gastrointestinal/Abdominal: positive: Normal Bowel Sounds, Flat, Soft. negative : Tender, Organomegaly, Pulsatile Mass Musculoskeletal: positive: Normal Inspection (No tenderness with L arm movement. No tenderness over L chest. ). negative: CVA Tenderness Extremity: positive: Normal Capillary Refill, Normal Inspection, Normal Range of Motion, Pelvis Stable. negative: Tender Integumentary: positive: Normal Color, Dry, Warm Neurologic: positive: gold blower II-XII NML intact, Fully Oriented, Alert, Normal Mood/ Affect, Normal Response, Motor Strength 5/5 Heart Score/ECG Review - History History: Slightly suspicious (No prior AL, no HTN or HLD. Prior chest pain relieved with antacids.) - Electrocardiogram EKG: Normal - Age Age: 45-65 - Risk Factors Risk Factors Heart Score: No Hx Hypercholesterolemia, No Hx Hypertension, Yes Hx Diabetes, No Smoking History Based on the list above the patient has:: 1-2 risk factors - Troponin Troponin: </= normal limit - Score Heart Score - Total: 2 - ECG Intrepretation Rhythm: Regular Rhythm - [place]: Normal - P and ND Prominent R with upright T in V1 (true posterior AL): No Delta Wave(s) Present: No WPW: No - ST and T Early Repolarization: No Non Specific ST-T Wave changes: No Flattened T Waves: No Prolonged Q-T Interval: No - ECG Impressions Normal ECG: Yes Non-specific ST Elevation: No Ischemic Changes: No Torsades daniel Pointes: No WPW: No ED Treatment Course - LABORATORY CBC & Chemistry Diagram: 12/21/17 17:04 12/21/17 20:08 - ADDITIONAL ORDERS Additional order review: Laboratory Results 12/21/17 12/21/17 12/21/17 17:05 17:05 17:04 Sodium Potassium Chloride Carbon Dioxide Anion Gap BUN Creatinine Creat Clearance w eGFR Random Glucose Calcium Magnesium Cancelled Total Bilirubin AST ALT Alkaline Phosphatase Creatine Kinase Troponin I B-Natriuretic Peptide Cancelled Total Protein Albumin Urine Color Yellow Urine Appearance Cloudy Urine pH 5.0 Ur Specific Bailey 1.027 Urine Protein 1+ H Urine Glucose (UA) 3+ H Urine Ketones Trace H Urine Blood 1+ H Urine Nitrite Negative Urine Bilirubin Negative Urine Urobilinogen Negative Ur Leukocyte Esterase Trace Urine WBC (Auto) 4 Urine RBC (Auto) 3 Ur Epithelial Cells Moderate Urine Mucus Rare Urine HCG, Qual Negative 12/21/17 12/21/17 17:04 17:04 Sodium Cancelled Potassium Cancelled Chloride Cancelled Carbon Dioxide Cancelled Anion Gap Cancelled BUN Cancelled Creatinine Cancelled Creat Clearance w eGFR Cancelled Random Glucose Cancelled Calcium Cancelled Magnesium Total Bilirubin Cancelled AST Cancelled ALT Cancelled Alkaline Phosphatase Cancelled Creatine Kinase Cancelled Troponin I Cancelled B-Natriuretic Peptide Total Protein Cancelled Albumin Cancelled Urine Color Urine Appearance Urine pH Ur Specific Bailey Urine Protein Urine Glucose (UA) Urine Ketones Urine Blood Urine Nitrite Urine Bilirubin Urine Urobilinogen Ur Leukocyte Esterase Urine WBC (Auto) Urine RBC (Auto) Ur Epithelial Cells Urine Mucus Urine HCG, Qual 12/21/17 17:04 RBC 4.96 MCV 74.2 L MCHC 31.9 L RDW 16.3 H MPV 8.5 Neutrophils % 66.1 D Lymphocytes % 27.7 D Monocytes % 4.4 Eosinophils % 1.2 Basophils % 0.6 - RADIOLOGY Radiology Studies Ordered: Chest x-ray 12/22/17 00:43 Radiograph Interpretation: Normal chest x-ray. No cardiomegaly, no effusions or infiltrates. No rib fractures. 12/22/17 00:43 Medical Decision Making - Medical Decision Making Pt seen, vitals stable. Last CMP hemolyzed, reordered CMP, troponin, and fingerstick glucose. Pt ECG normal. Chest x-ray negative for rib fractures, effusions, and infiltrates. Provided .5L NS and Maalox suspension to reduce chest discomfort and to reduce urine glucose. No recent travel or sedentary conditions. 12/21/17 20:13 Pt stable and was able to tolerate PO food and fluid. Pt states no current chest discomfort at this time. Spoke with tracer bullet charging machine operator phone call to answer any additional pt concerns with Dr. Catherine. Troponin negative, pt agreeable to discharge home with PCP follow-up and strict return precautions. 12/21/17 21:48 *DC/Admit/Observation/Transfer Diagnosis at time of Disposition: Chest pain Qualifiers: Chest pain type: unspecified Qualified Code(s): R07.9 - Chest pain, unspecified - Discharge Dispostion Disposition: HOME Condition at time of disposition: Improved Decision to Admit order: No - Prescriptions Prescriptions: Omeprazole 20 mg PO DAILY PRN #14 tablet.dr [place] Reason: Indigestion - Referrals Referrals: Lg Mahmood MD [Primary Care Provider] - - Patient Instructions Printed Discharge Instructions: DI for Atypical Chest Pain Additional Instructions: Please follow-up with your PCP doctor within the next few days. Please continue to exercise, drink fluids, and take your diabetes medications as prescribed by your doctor. Please return for any worsening chest pain, fevers/chills, shortness of breath, or any other concerns. - Post Discharge Activity
--- NOTE | 2017-12-21 19:16 | PDOC ---
Attending Attestation - HPI HPI: 12/21/17 19:54 The patient is a 47 year old female, with a significant PMH of DM, who presents to the emergency department with approx 4 days of intermittent left sided chest pain. The patient states the left sided chest pain radiates to the left shoulder /arm, last for a few minutes before resolving on its own, with no exacerbating or remitting factors. The patient states she has been walking more frequently over the past 3 weeks. The patient states the chest pain is not worsened with exertion. The patient also endorses dysuria and urgency. The patient denies any recent travel or surgery. The patient denies any recent leg swelling or calf tenderness. The patient denies palpitations, diaphoresis, shortness of breath, headache and dizziness. Denies fever, chills, nausea, vomit, diarrhea and constipation. Denies frequency and hematuria. Allergies: NKA Past surgical history: Hysterectomy Social history: No reported PCP: Dr Lg Mahmood - Physicial Exam PE: 12/21/17 19:54 GENERAL: Awake, alert, and fully oriented, in no acute distress HEAD: No signs of trauma EYES: PERRLA, EOMI, sclera anicteric, conjunctiva clear ENT: Auricles normal inspection, hearing grossly normal, nares patent, oropharynx clear without exudates. Moist mucosa NECK: Normal ROM, supple, no lymphadenopathy, JVD, or masses LUNGS: Breath sounds equal, clear to auscultation bilaterally. No wheezes, and no crackles HEART: Regular rate and rhythm, normal S1 and S2, no murmurs, rubs or gallops ABDOMEN: Soft, nontender, normoactive bowel sounds. No guarding, no rebound. No masses EXTREMITIES: (+) Mild pitting edema lower extremities bilaterally. No calf tenderness. Normal range of motion. No clubbing or cyanosis. No cords, erythema , or tenderness NEUROLOGICAL: Cranial nerves II through XII grossly intact. Normal speech, normal gait SKIN: Warm, Dry, normal turgor, no rashes or lesions noted. <Jamie Choi - Last Filed: 12/21/17 19:54> - Resident Resident Name: Concepcion Wong - ED Attending Attestation I have performed the following: I have examined & evaluated the patient, The case was reviewed & discussed with the resident, I agree w/resident's findings & plan - Medical Decision Making 12/22/17 04:47 Pt feels well she has been reassured that her atypical CP is not an TX; she is anxious and agrees that she should eat a healthier diet and follow with a carbon cutter. <Sharonda Catherine - Last Filed: 12/22/17 04:48> Attestations - Attestations 12/21/17 19:56 Documentation prepared by Jamie Choi, acting as medical equipment sales for Sharonda Catherine MD. <Jamie Choi - Last Filed: 12/21/17 19:54>
[2017-12-21] MEDS ORDERED: SODIUM CHLORIDE 0.9% 500 ML INFUS.BAG IV ONE (19:54)
[2017-12-21] MEDS ORDERED: MAG HYDROX/AL HYDROX/SIMETH 30 ML UNIT-DOSE CUP PO ONE (20:01)
[2017-12-21] MEDS ORDERED: MAG HYDROX/AL HYDROX/SIMETH 30 ML UNIT-DOSE CUP ONE (20:03)
[2017-12-21 21:15] LABS: ALBUMIN 3.5 g/dl (3.4-5.0); ANION GAP 8 (8-16); BLOOD UREA NITROGEN 19 mg/dL (7-18); CHLORIDE 106 mmol/L (98-107); CO2 26 mmol/L (21-32); GLUCOSE,RANDOM 164 mg/dL (74-106); POTASSIUM 4.1 mmol/L (3.5-5.1); SGOT/AST 19 U/L (15-37); SGPT/ALT 33 U/L (12-78); SODIUM 140 mmol/L (136-145)
[2017-12-21 21:18] LABS: ALK PHOS 132 U/L (45-117); BILIRUBIN,TOTAL 0.3 mg/dL (0.2-1.0); TOT PROT 8.1 g/dl (6.4-8.2)
--- NOTE | 2017-12-22 10:11 | EKG ---
Test Reason : Blood Pressure : / mmHG Vent. Rate : 087 BPM Atrial Rate : 087 BPM P-R Int : 146 ms QRS Dur : 080 ms QT Int : 388 ms P-R-T Axes : 036 -10 021 degrees QTc Int : 466 ms NORMAL SINUS RHYTHM CANNOT RULE OUT ANTERIOR INFARCT , AGE UNDETERMINED ABNORMAL ECG WHEN COMPARED WITH ECG OF 02-AUG-2017 09:01, NO SIGNIFICANT CHANGE WAS FOUND Confirmed by RAKAN ALLISON, OMI ([id number]) on 12/22/2017 10:10:55 AM Referred By: Confirmed By:OMI BLEDSOE MD
== END 2017-12-21 22:02 | disposition home or self-care (01) ==
LOC: JER 15:31
PROC: 3E0337Z Introduction of Electrolytic and Water Balance Substance into Peripheral Vein, Percutaneous Approach (ICD-10-PCS; principal; 2017-12-21)
DX: R07.9 Chest pain, unspecified (principal)
CPT/HCPCS: 36415; 71046-TC-FY; 80053; 81003; 81015; 82550; 82962; 84484; 84703; 85025; 85610; 93005; 93010; 96374; 99285-25

== ENCOUNTER 2018-06-26 15:40 | Emergency (ER) | payer OTHER ==
--- NOTE | 2018-06-26 15:48 | PDOC ---
Rapid Medical Evaluation Time Seen by Provider: 06/26/18 15:47 Medical Evaluation: Allergies Allergy/AdvReac Type Severity Reaction Status Date / Time No Known Allergies Allergy Verified 12/21/17 15:56 06/26/18 15:48 I performed a brief in-person evaluation of this patient. Chief complaint is: Fever, throat pain, mid-back pain, "rib" pain Pertinent physical exam findings include: Tonsils 3+, no exudates. Mild tachypnea, clear lungs. T 99.3, took Tylenol prior to arrival. I have ordered the following: Rapid strep, rapid flu. Patient will proceed to the ED for further evaluation. Discharge Disposition - Diagnosis Fever Qualifiers: Fever type: unspecified Qualified Code(s): R50.9 - Fever, unspecified - Discharge Dispostion Condition at time of disposition: Stable - Referrals - Patient Instructions - Post Discharge Activity
[2018-06-26 15:51] VITALS: BP 131/80; PULSE 92; TEMP 99.3; BMI 30.4
--- NOTE | 2018-06-26 16:27 | PDOC ---
History of Present Illness - General Chief Complaint: Cold Symptoms Stated Complaint: FEVER/BACK PAIN Time Seen by Provider: 06/26/18 15:47 History Source: Patient Exam Limitations: No Limitations Past History - Past Medical History Allergies/Adverse Reactions: Allergies Allergy/AdvReac Type Severity Reaction Status Date / Time No Known Allergies Allergy Verified 06/26/18 16:11 Home Medications: Ambulatory Orders metFORMIN HCL [Metformin HCl] 500 mg PO DAILY 03/16/16 Anemia: No Asthma: Yes Cancer: No Cardiac Disorders: No (chest pain 1 year ago) CVA: No COPD: No CHF: No Dementia: No Diabetes: Yes GI Disorders: No Disorders: No HTN: No Hypercholesterolemia: No Liver Disease: No Seizures: No Thyroid Disease: No - Surgical History Abdominal Surgery: Yes Appendectomy: No Cardiac Surgery: No Cholecystectomy: No Lung Surgery: No Neurologic Surgery: No Orthopedic Surgery: No - Immunization History Immunization Up to Date: Yes - Suicide/Smoking/Psychosocial Hx Smoking History: Never smoked Have you smoked in the past 12 months: No Number of Cigarettes Smoked Daily: 0 Information on smoking cessation initiated: No Hx Alcohol Use: No Drug/Substance Use Hx: No Substance Use Type: None Hx Substance Use Treatment: No *Physical Exam - Vital Signs Last Vital Signs Temp Pulse Resp BP Pulse Ox 99.3 F 92 H 16 131/80 96 06/26/18 15:48 06/26/18 15:48 06/26/18 15:48 06/26/18 15:48 06/26/18 15:48 - Physical Exam General Appearance: No: Apparent Distress HEENT: positive: Pharyngeal Erythema, Other (B/L tonsillar swelling). negative : Muffled/Hoarse voice, Tonsillar Exudate, Nasal Congestion, Rhinorrhea, Sinus Tenderness Respiratory/Chest: positive: Lungs Clear, Normal Breath Sounds. negative: Respiratory Distress Cardiovascular: positive: Regular Rhythm, Regular Rate, S1, S2. negative: Murmur Gastrointestinal/Abdominal: positive: Normal Bowel Sounds, Soft. negative: Tender, Distended, Guarding, Rebound Integumentary: positive: Normal Color Neurologic: positive: Fully Oriented, Alert, Normal Mood/Affect Moderate Sedation - Procedure Monitoring Vital Signs: Procedure Monitoring Vital Signs Temperature 99.3 F 06/26/18 15:48 Pulse Rate 92 H 06/26/18 15:48 Respiratory Rate 16 06/26/18 15:48 Blood Pressure 131/80 06/26/18 15:48 O2 Sat by Pulse Oximetry (%) 96 06/26/18 15:48 Medical Decision Making - Medical Decision Making 48 y/o hx of DM, GERD presents with body aches, fever, sore throat and nausea x 2 days. Patient had some watery diarrhea yesterday, which has now resolved. Denies recent travel or sick contacts. Took Tylenol last night, but took no antipyretics today. Denies cough, sob, cp, abd pain, vomiting. Consider viral URI/flu, pharyngitis Flu and rapid strep pending 06/26/18 16:27 Flu negative Patient positive for strep throat Patient treated with decadron, motrin and penicillin IM 06/26/18 17:35 *DC/Admit/Observation/Transfer Diagnosis at time of Disposition: Strep pharyngitis - Discharge Dispostion Disposition: HOME Condition at time of disposition: Stable Decision to Admit order: No - Referrals Referrals: Lg Mahmood MD [Primary Care Provider] - 3 days - Patient Instructions Printed Discharge Instructions: DI for Strep Throat Additional Instructions: Thank you for choosing [facility]. It was a pleasure taking care of you. You were treated for strep throat. You may take Tylenol 650 mg or Motrin 600 mg every 4 hours by mouth as needed for mild to moderate pain. Take Motrin with food. Do not take more than 4000 mg of Tylenol in 1 day. Do salt water gargles to help with throat discomfort Return to the Emergency Department if your symptoms worsen or persist or have other concerning symptoms. - Post Discharge Activity
[2018-06-26] MEDS ORDERED: IBUPROFEN 400 MG TABLET (FP) PO ONE ×2 (17:00→17:28)
[2018-06-26] MEDS ORDERED: PENICILLIN G BENZATHINE 1,200,000 UNIT/2 ML PFS IM ONE (17:00)
[2018-06-26] MEDS ORDERED: DEXAMETHASONE SOD PHOSPHATE 10 MG/1 ML VIAL IM ONE (17:00)
[2018-06-26] MEDS ORDERED: DEXAMETHASONE SOD PHOSPHATE 10 MG/1 ML VIAL ONE (17:28)
[2018-06-26] MEDS ORDERED: PENICILLIN G BENZATHINE 2,400,000 UNIT/4 ML PFS ONE (17:29)
== END 2018-06-26 18:00 | disposition home or self-care (01) ==
LOC: JERFT 15:40
PROC: 3E023GC Introduction of Other Therapeutic Substance into Muscle, Percutaneous Approach (ICD-10-PCS; principal; 2018-06-26)
PROC: 3E02329 Introduction of Other Anti-infective into Muscle, Percutaneous Approach (ICD-10-PCS; 2018-06-26)
DX: R50.9 Fever, unspecified (principal)
CPT/HCPCS: 87804; 87880; 96372; 99281-25; J1100

== ENCOUNTER 2018-08-17 17:45 | Emergency (ER) | payer OTHER ==
[2018-08-17 18:11] VITALS: BP 159/84; PULSE 90; BMI 29.0
--- NOTE | 2018-08-17 18:40 | PDOC ---
History of Present Illness - General History Source: Patient Exam Limitations: No Limitations - History of Present Illness Initial Comments: 08/17/18 20:32 The patient is a 48-year-old female with a past medical history significant for acute renal failure (while ), and hx of UTI (2016) presents to the emergency department with urinary symptoms. The patient reported about 2-3 days ago she had vaginal itching, states she tried to washing the area with hot water and using vagisil, without relief. The patient states at 2:00 pm today, she had a severe episode of dysuria while urinating. The patient states the symptom is associated with urinary frequency and urgency, states she gets the urge to void; however, she only has 2-3 drops. The patient reports secondary to the pain, she has associated symptoms of shortness of breath and sweating. The patient states she has an appointment with [employer] Dr. Leary on Sunday (08/19/2018) . Allergies: NKA PCP: Dr. Lindy Mahmood. <Leticia Valle - Last Filed: 08/17/18 20:43> - General History Source: Patient Exam Limitations: No Limitations <Celia Kendall - Last Filed: 08/17/18 22:06> - General Chief Complaint: Pain Stated Complaint: UTI Time Seen by Provider: 08/17/18 18:39 Past History <Leticia Valle - Last Filed: 08/17/18 20:43> - Past Medical History Anemia: No Asthma: Yes Cancer: No Cardiac Disorders: No (chest pain 1 year ago) CVA: No COPD: No CHF: No Dementia: No Diabetes: Yes GI Disorders: No Disorders: No HTN: No Hypercholesterolemia: No Liver Disease: No Seizures: No Thyroid Disease: No - Surgical History Abdominal Surgery: Yes (hysterectomy) Appendectomy: No Cardiac Surgery: No Cholecystectomy: No Lung Surgery: No Neurologic Surgery: No Orthopedic Surgery: No - Immunization History Immunization Up to Date: Yes - Suicide/Smoking/Psychosocial Hx Smoking History: Never smoked Have you smoked in the past 12 months: No Number of Cigarettes Smoked Daily: 0 Hx Alcohol Use: No Drug/Substance Use Hx: No Substance Use Type: None Hx Substance Use Treatment: No <Celia Kendall - Last Filed: 08/17/18 22:06> - Past Medical History Allergies/Adverse Reactions: Allergies Allergy/AdvReac Type Severity Reaction Status Date / Time No Known Allergies Allergy Verified 08/17/18 18:02 Home Medications: Ambulatory Orders metFORMIN HCL [Metformin HCl] 500 mg PO BID 03/16/16 Fluconazole [Diflucan] 150 mg PO ONCE #1 tablet 08/17/18 Nitrofurantoin Monohyd/M-Cryst [Macrobid -] 100 mg PO BID #14 capsule 08/17/18 Phenazopyridine HCl [Pyridium] 100 mg PO TID #6 tablet 08/17/18 Review of Systems - Review of Systems Able to Perform ROS?: Yes Comments:: 08/17/18 20:32 CONSTITUTIONAL: +sweating. No fever, no chills, no fatigue EYES: No visual changes ENT: No ear pain, no sore throat CARDIOVASCULAR: No chest pain, no palpitations RESPIRATORY: +sob. No cough. GI: No abdominal pain, no nausea, no vomiting, no constipation, no diarrhea GENITOURINARY: +vaginal itching, dysuria, urinary frequency and urgency. No hematuria. MUSKULOSKELETAL: No backpain, no joint pain, no myalgias SKIN: No rash NEURO: No headache <Leticia Valle - Last Filed: 08/17/18 20:43> *Physical Exam - Vital Signs Last Vital Signs Temp Pulse Resp BP Pulse Ox 99 F 90 22 H 159/84 99 08/17/18 18:02 08/17/18 18:02 08/17/18 18:02 08/17/18 18:02 08/17/18 18:02 - Physical Exam Comments: 08/17/18 20:32 GENERAL: The patient is in no acute distress. HEAD: Normal with no signs of trauma. EYES: PERRLA, EOMI, sclera anicteric, conjunctiva clear. ENT: Ears normal, nares patent, oropharynx clear without exudates. Moist mucous membranes. NECK: Normal range of motion, supple without lymphadenopathy, JVD, or masses. LUNGS: Breath sounds equal, clear to auscultation bilaterally. No wheezes, and no crackles. HEART:Regular rate and rhythm, normal S1 and S2 without murmur, rub or gallop. ABDOMEN: +suprapubic tenderness, no guarding or rebound. No masses palpable. Speculum exam differed. External genital: +erythematous vaginal tissues, irritation, no discharge noted. EXTREMITIES: Normal range of motion, no edema. No clubbing or cyanosis. No erythema, or tenderness. NEUROLOGICAL: Cranial nerves II through XII grossly intact. Normal speech. No focal neurological deficits. MUSCULOSKELETAL: Back nontender to palpation, no CVA tenderness SKIN: Warm, Dry, normal turgor, no rashes or lesions noted. <Leticia Valle - Last Filed: 08/17/18 20:43> - Vital Signs Last Vital Signs Temp Pulse Resp BP Pulse Ox 99 F 90 22 H 159/84 99 08/17/18 18:02 08/17/18 18:02 08/17/18 18:02 08/17/18 18:02 08/17/18 18:02 <Celia Knedall - Last Filed: 08/17/18 22:06> Moderate Sedation - Procedure Monitoring Vital Signs: Procedure Monitoring Vital Signs Temperature 99 F 08/17/18 18:02 Pulse Rate 90 08/17/18 18:02 Respiratory Rate 22 H 08/17/18 18:02 Blood Pressure 159/84 08/17/18 18:02 O2 Sat by Pulse Oximetry (%) 99 08/17/18 18:02 <Leticia Valle - Last Filed: 08/17/18 20:43> - Procedure Monitoring Vital Signs: Procedure Monitoring Vital Signs Temperature 99 F 08/17/18 18:02 Pulse Rate 90 08/17/18 18:02 Respiratory Rate 22 H 08/17/18 18:02 Blood Pressure 159/84 08/17/18 18:02 O2 Sat by Pulse Oximetry (%) 99 08/17/18 18:02 <Celia Kendall - Last Filed: 08/17/18 22:06> ED Treatment Course - LABORATORY CBC & Chemistry Diagram: 08/17/18 19:26 08/17/18 19:26 - ADDITIONAL ORDERS Additional order review: Laboratory Results 08/17/18 08/17/18 19:26 19:06 Sodium 139 Potassium 4.1 Chloride 107 Carbon Dioxide 26 Anion Gap 6 L BUN 13 Creatinine 0.9 Creat Clearance w eGFR 67.11 Random Glucose 148 H Calcium 9.4 Total Bilirubin 0.2 AST 16 ALT 27 Alkaline Phosphatase 105 Total Protein 7.8 Albumin 3.5 Urine Color Ltyellow Urine Appearance Slcloudy Urine pH 8.0 D Ur Specific [place] 1.016 Urine Protein 1+ H Urine Glucose (UA) 3+ H Urine Ketones Negative Urine Blood 2+ H Urine Nitrite Negative Urine Bilirubin Negative Urine Urobilinogen Negative Ur Leukocyte Esterase 2+ H Urine WBC (Auto) 170 Urine RBC (Auto) 92 Ur Epithelial Cells Rare Urine Mucus Rare 08/17/18 19:26 RBC 4.63 MCV 75.5 L MCHC 33.3 RDW 16.2 H MPV 8.3 Neutrophils % 64.1 Lymphocytes % 28.0 Monocytes % 6.4 Eosinophils % 0.8 Basophils % 0.7 <Leticia Valle - Last Filed: 08/17/18 20:43> - LABORATORY CBC & Chemistry Diagram: 08/17/18 19:26 08/17/18 19:26 <Celia Kendall - Last Filed: 08/17/18 22:06> Medical Decision Making - Medical Decision Making 08/17/18 20:[address] Montoya at 8:44 pm. <Leticia Valle - Last Filed: 08/17/18 20:43> - Medical Decision Making 08/17/18 20:13 Ms Conner is a 48 yo F who presents to the ER with a complaint of dysuria, frequency, urgency no flank pain No fevers Pt symptoms began 3-4 days ago with vaginal itching She has aggressively washed the area and now it feels raw/irritated Pt reports that she over the past 2 years takes one of the antibiotics from 2016 anytime she feels a bit of burning Examination reveals: Suprapubic tenderness to palpation NO CVA tenderness to palpation Pt refused speculum examination Exeternal examination reveals erythematous vaginal tissues, no discharge seen No vesicles seen DD includes but is not limited to - UTI - cystitis - vaginal candidaisis - local irritation Laboratory Tests 08/17/18 08/17/18 08/17/18 19:06 19:26 19:26 WBC 12.0 H Hgb 11.6 Hct 35.0 Plt Count 248 Sodium 139 Potassium 4.1 Chloride 107 Carbon Dioxide 26 BUN 13 Creatinine 0.9 Random Glucose 148 H Urine Appearance Slcloudy Urine Blood 2+ H Urine Nitrite Negative Ur Leukocyte Esterase 2+ H Urine WBC (Auto) 170 Urine RBC (Auto) 92 UA demonstrates UTI Will discharge with treatment for UTI, Yeast infection, and dysuria (Cefpodoxime , Diflucan, Pyridium) Pt has follow up with gynecology in 2 days (outside physician) Will discharge to home Follow up as already planned 08/17/18 21:25 Pt has no signs of systemic illness, no flank pain, will try starting her treatment with macrobid Pt given strict return precautions Return for fevers, flank pain 08/17/18 21:27 08/17/18 22:06 RECTAL TEMP. 98.2 <Celia Kendall - Last Filed: 08/17/18 22:06> *DC/Admit/Observation/Transfer - Attestations Scribe Attestion: 08/17/18 20:33 Documentation prepared by Leticia Valle, acting as medical biller/coder for Celia Kendall MD. <Leticia Valle - Last Filed: 08/17/18 20:43> - Discharge Dispostion Decision to Admit order: No <Celia Kendall - Last Filed: 08/17/18 22:06> Diagnosis at time of Disposition: UTI (urinary tract infection) Qualifiers: Urinary tract infection type: acute cystitis Hematuria presence: without hematuria Qualified Code(s): N30.00 - Acute cystitis without hematuria - Discharge Dispostion Disposition: HOME Condition at time of disposition: Stable - Prescriptions Prescriptions: Fluconazole [Diflucan] 150 mg PO ONCE #1 tablet Nitrofurantoin Monohyd/M-Cryst [Macrobid -] 100 mg PO BID #14 capsule Phenazopyridine HCl [Pyridium] 100 mg PO TID #6 tablet - Referrals Referrals: Lg Mahmood MD [Primary Care Provider] - - Patient Instructions Printed Discharge Instructions: DI for Urinary Tract Infection (UTI), DI for Acute Cystitis Additional Instructions: Ms Conner Thank you for coming in to the ER today Please be sure to keep your follow up appointment with the medical office supervisor on Sunday Please take antibiotics PRESCRIBED Macrobid will treat your Urine infection Pyridium will treat your bladder irritation - This can turn your urine orange in color Diflucan will treat your possible yeast infection PLEASE MONITOR YOURSELF FOR FEVERS, PAIN IN YOUR BACK, NAUSEA, VOMITING IF YOU HAVE ANY OF THESE SYMPTOMS, PLEASE COME BACK TO THE ER WE WOULD LIKE TO SEE YOU - Post Discharge Activity
[2018-08-17 19:37] LABS: URINE APPEARANCE SLCLOUDY; URINE BILIRUBIN NEGATIVE (<2.0 mg/dL); URINE COLOR LTYELLOW; URINE GLUCOSE (UA) 3+ (NEGATIVE); URINE KETONE NEGATIVE (NEGATIVE); URINE LEUK ESTERASE 2+ (NEGATIVE); URINE NITRITE NEGATIVE (NEGATIVE); URINE PROTEIN 1+ (NEGATIVE); URINE UROBILINOGEN NEGATIVE mg/dL (0.2-1.0)
[2018-08-17 19:39] LABS: BASO % 0.7 % (0-2.0); EOS % 0.8 % (0-4.5); HEMOGLOBIN 11.6 GM/dL (10.7-15.3); MCH 25.1 pg (25.7-33.7); MCHC 33.3 g/dl (32.0-36.0); MEAN CELL VOLUME 75.5 fl (80-96); MEAN PLT VOLUME 8.3 fl (7.5-11.1); MONO % 6.4 % (3.8-10.2); NEUT % 64.1 % (42.8-82.8); PLATELET COUNT 248 K/MM3 (134-434); RBC 4.63 M/mm3 (3.60-5.2); RDW 16.2 % (11.6-15.6)
[2018-08-17 19:59] LABS: EPI CELLS RARE /HPF (FEW); URINE MUCUS RARE
[2018-08-17 20:08] LABS: ALBUMIN 3.5 g/dl (3.4-5.0); ALK PHOS 105 U/L (45-117); ANION GAP 6 MMOL/L (8-16); BILIRUBIN,TOTAL 0.2 mg/dL (0.2-1); BLOOD UREA NITROGEN 13 mg/dL (7-18); CALCIUM 9.4 mg/dL (8.5-10.1); CHLORIDE 107 mmol/L (98-107); CO2 26 mmol/L (21-32); CREATININE 0.9 mg/dL (0.55-1.3); GLUCOSE,RANDOM 148 mg/dL (74-106); POTASSIUM 4.1 mmol/L (3.5-5.1); SGOT/AST 16 U/L (15-37); SGPT/ALT 27 U/L (13-61); SODIUM 139 mmol/L (136-145); TOT PROT 7.8 g/dl (6.4-8.2)
[2018-08-17] MEDS ORDERED: NITROFURANTOIN MACROCRYSTAL 50 MG CAPSULE (FP) PO SCH (21:30)
[2018-08-17] MEDS ORDERED: PHENAZOPYRIDINE HCL 100 MG TABLET (FP) PO ONE (21:42)
[2018-08-17] MEDS ORDERED: PHENAZOPYRIDINE HCL 100 MG TABLET (FP) ONE (21:50)
[2018-08-17] MEDS ORDERED: NITROFURANTOIN MACROCRYSTAL 50 MG CAPSULE (FP) ONE (21:50)
[2018-08-17 22:07] VITALS: TEMP 98.2
== END 2018-08-17 22:08 | disposition home or self-care (01) ==
LOC: JER 17:45
DX: N30.00 Acute cystitis without hematuria (principal); E11.9 Type 2 diabetes mellitus without complications; Z87.09 Personal history of other diseases of the respiratory system
CPT/HCPCS: 36415; 80053; 81003; 81015; 85025; 87086; 87186; 99281-25

== ENCOUNTER 2021-04-04 16:10 | Observation (INO) | payer OTHER ==
[2021-04-04 16:49] VITALS: BP 159/85; PULSE 92; TEMP 97.7; BMI 30.5
[2021-04-04 18:10] LABS: BASO % 0.9 % (0-2.0); EOS % 0.8 % (0-4.5); HEMATOCRIT 37.8 % (32.4-45.2); HEMOGLOBIN 12.2 GM/dL (10.7-15.3); LYMPH % 28.8 % (8-40); MCHC 32.3 g/dl (32.0-36.0); MEAN CELL VOLUME 71.4 fl (80-96); MONO % 5.1 % (3.8-10.2); NEUT % 64.4 % (42.8-82.8); PLATELET COUNT 303 10^3/uL (134-434); RDW 16.8 % (11.6-15.6)
[2021-04-04 18:24] LABS: CHLORIDE 105 mmol/L (98-107); SODIUM 138 mmol/L (136-145)
[2021-04-04 18:26] LABS: CALCIUM 10.3 mg/dL (8.5-10.1)
[2021-04-04 18:27] LABS: ALBUMIN 3.6 g/dl (3.4-5.0); ANION GAP 8 MMOL/L (8-16); BLOOD UREA NITROGEN 18.6 mg/dL (7-18); CO2 25 mmol/L (21-32); GLUCOSE,RANDOM 327 mg/dL (74-106)
[2021-04-04 18:30] LABS: SGOT/AST 18 U/L (15-37); SGPT/ALT 31 U/L (13-61)
[2021-04-04 18:31] LABS: BILIRUBIN,TOTAL 0.2 mg/dL (0.2-1)
[2021-04-04 18:32] LABS: TOT PROT 8.5 g/dl (6.4-8.2)
[2021-04-04 18:33] LABS: ALK PHOS 140 U/L (45-117)
[2021-04-04] MEDS ORDERED: INSULIN SLIDING SCALE (NOVOLOG) 1 VIAL SQ SCH (22:00)
[2021-04-04] MEDS ORDERED: ATORVASTATIN CA 10 MG TABLET (FP) PO SCH (22:00)
[2021-04-05] MEDS ORDERED: ENOXAPARIN NA (PORCINE) 40 MG/0.4 ML DISP.SYRIN SQ SCH (10:00)
== END 2021-04-04 23:40 | disposition left against medical advice (07) ==
LOC: JER 16:10 → JERBED 20:00
PROVIDERS: ADMIT Internal Medicine; ATTEND Internal Medicine
DX: E11.65 Type 2 diabetes mellitus with hyperglycemia (principal); E78.00 Pure hypercholesterolemia, unspecified; I10 Essential (primary) hypertension; E66.8 Other obesity; Z68.30 Body mass index [BMI] 30.0-30.9, adult; R07.9 Chest pain, unspecified
CPT/HCPCS: 36415; 71045-TC-FY; 80053; 82550; 82962; 84484; 85025; 93005; 93010; 99285-25; C9803; G0378; U0003; U0005

== ENCOUNTER 2021-11-30 08:36 | Emergency (ER) | payer OTHER ==
[2021-11-30 08:43] VITALS: BP 153/72; PULSE 103; TEMP 99.2; BMI 29.3
[2021-11-30] MEDS ORDERED: KETOROLAC TROMETHAMINE 30 MG/1 ML VIAL IM ONE (09:37)
[2021-11-30] MEDS ORDERED: KETOROLAC TROMETHAMINE 30 MG/1 ML VIAL ONE (09:40)
[2021-11-30 10:44] LABS: EPI CELLS 5 /uL (0-25.1); HYALINE CASTS 0 /uL (0-3.1); PH,URINE 5.5 (5.0-8.0); URINE APPEARANCE CLEAR; URINE BACTERIA 15 /uL (0-1359); URINE BILIRUBIN NEGATIVE (NEGATIVE); URINE COLOR YELLOW; URINE GLUCOSE (UA) 3+ (NEGATIVE); URINE KETONE NEGATIVE (NEGATIVE); URINE LEUK ESTERASE NEGATIVE (NEGATIVE); URINE NITRITE NEGATIVE (NEGATIVE); URINE PROTEIN 1+ (NEGATIVE); URINE RBC 3 /uL (0-23.9); URINE UROBILINOGEN 0.2 mg/dL (0.2-1.0); URINE WBC 19 /uL (0-25.8)
== END 2021-11-30 11:36 | disposition home or self-care (01) ==
LOC: JER 08:36
PROC: 3E0233Z Introduction of Anti-inflammatory into Muscle, Percutaneous Approach (ICD-10-PCS; principal; 2021-11-30)
DX: M54.50 Low back pain, unspecified (principal); G89.29 Other chronic pain
CPT/HCPCS: 81003; 84703; 87086; 99285-25

== ENCOUNTER 2022-10-07 21:11 | Emergency (ER) | payer OTHER ==
[2022-10-07 21:19] VITALS: BP 147/83; PULSE 105; RESP 19; TEMP 98.6; BMI 29.8
== END 2022-10-07 22:32 | disposition home or self-care (01) ==
LOC: JERFT 21:11
DX: R11.2 Nausea with vomiting, unspecified (principal); A05.9 Bacterial foodborne intoxication, unspecified
CPT/HCPCS: 99282-25

== ENCOUNTER 2022-10-12 23:03 | Emergency (ER) | payer OTHER ==
[~2022-10-12 23:03] MED LIST: LIDOCAINE PATCH REMOVAL MC SCH
[2022-10-12 23:13] VITALS: BP 159/90; PULSE 83; RESP 19; TEMP 97.8; BMI 28.8
[2022-10-12] MEDS ORDERED: LIDOCAINE 5% TOPICAL PATCH TP ONE (23:43)
[2022-10-12] MEDS ORDERED: diazePAM 5 MG TABLET PO ONE (23:43)
[2022-10-12] MEDS ORDERED: diazePAM 5 MG TABLET ONE (23:53)
[2022-10-12] MEDS ORDERED: LIDOCAINE 5% TOPICAL PATCH ONE (23:53)
== END 2022-10-13 01:50 | disposition home or self-care (01) ==
LOC: JER 23:03
DX: M25.512 Pain in left shoulder (principal); M79.602 Pain in left arm; M62.838 Other muscle spasm
CPT/HCPCS: 93971; 99284-25

== ENCOUNTER 2022-10-14 20:27 | Emergency (ER) | payer OTHER ==
[2022-10-14 20:45] VITALS: BP 151/93; PULSE 88; RESP 20; TEMP 97.5; BMI 28.7
[2022-10-14] MEDS ORDERED: diazePAM 5 MG TABLET PO ONE (22:11)
[2022-10-14] MEDS ORDERED: diazePAM 5 MG TABLET ONE (22:18)
== END 2022-10-15 01:35 | disposition home or self-care (01) ==
LOC: JER 20:27
DX: M79.622 Pain in left upper arm (principal); M19.012 Primary osteoarthritis, left shoulder; M25.522 Pain in left elbow; M25.512 Pain in left shoulder
CPT/HCPCS: 72050-TC-FY; 73070-TC-LT-FY; 93005; 93010; 99284-25

== ENCOUNTER 2023-12-19 21:36 | Emergency (ER) | payer OTHER ==
[2023-12-19 21:51] VITALS: BP 145/80; PULSE 87; RESP 18; TEMP 97.9; BMI 28.1
[2023-12-19] MEDS: LIDOCAINE PATCH REMOVAL MC SCH (22:41)
[2023-12-19] MEDS ORDERED: LIDOCAINE 4% PATCH TP ONE (22:42)
[2023-12-19] MEDS ORDERED: KETOROLAC TROMETHAMINE 15 MG/ML VIAL ONE (22:44)
[2023-12-19] MEDS: KETOROLAC TROMETHAMINE 15 MG/ML VIAL IM ONE (22:51)
[2023-12-19] MEDS: LIDOCAINE 4% PATCH TP ONE (22:52)
== END 2023-12-19 23:52 | disposition home or self-care (01) ==
LOC: JERFT 21:36
PROC: 3E0233Z Introduction of Anti-inflammatory into Muscle, Percutaneous Approach (ICD-10-PCS; principal; 2023-12-19)
DX: M54.41 Lumbago with sciatica, right side (principal); V49.50XA Passenger injured in collision with unspecified motor vehicles in traffic accident, initial encounter; Y92.410 Unspecified street and highway as the place of occurrence of the external cause
CPT/HCPCS: 72100-TC-FY; 99284-25

== ENCOUNTER 2024-11-05 22:35 | Emergency (ER) | payer OTHER ==
[2024-11-05 22:48] VITALS: PULSE 88; RESP 20; TEMP 97.9; BMI 28.1
[2024-11-05] MEDS ORDERED: ACETAMINOPHEN 500 MG TABLET (FP) ONE (23:10)
[2024-11-05] MEDS: ACETAMINOPHEN 500 MG TABLET (FP) PO ONE (23:11)
[2024-11-05 23:52] VITALS: BP 120/66
== END 2024-11-05 23:52 | disposition home or self-care (01) ==
LOC: JER 22:35
DX: M79.674 Pain in right toe(s) (principal); W22.8XXA Striking against or struck by other objects, initial encounter
CPT/HCPCS: 73630-TC-RT-FY; 99283-25